=== PATIENT | male | born 1970 | race Asian ===

== ENCOUNTER 2018-06-08 17:34 | Emergency (ER) | payer OTHER ==
[~2018-06-08] VITALS: Ht 175.3 cm; Wt 79.4 kg
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
[2018-06-08] MEDS ORDERED: HYDROCODONE/APAP 5/325MG 1 EACH TABLET ONE (19:51)
[2018-06-08] MEDS ORDERED: IBUPROFEN 600 MG TABLET PO ONE ×2 (19:51→20:00)
[2018-06-08] MEDS ORDERED: HYDROCODONE/APAP 5/325MG 1 EACH TABLET PO ONE (20:00)
--- NOTE | 2018-06-08 20:11 | NUR ---
Patient discharged to home in stable condition. Written and verbal after care instructions given. Patient verbalizes understanding of instruction.
[2018-06-08 20:12] VITALS: BP 132/80
== END 2018-06-08 20:13 | disposition home or self-care (01) ==
LOC: ER 17:38
DX: S52.514A Nondisplaced fracture of right radial styloid process, initial encounter for closed fracture (principal); S16.1XXA Strain of muscle, fascia and tendon at neck level, initial encounter; S09.8XXA Other specified injuries of head, initial encounter; V49.49XA Driver injured in collision with other motor vehicles in traffic accident, initial encounter; Y93.89 Activity, other specified; Y92.410 Unspecified street and highway as the place of occurrence of the external cause; Y99.8 Other external cause status
CPT/HCPCS: 70450-TC; 71045-TC; 72125-TC; 72170-TC; 73090-TC; 73110